=== PATIENT | male | born 1955 | race Caucasian/White ===

== ENCOUNTER 2018-08-16 13:13 | Day surgery (SDC) | payer OTHER ==
[~2018-08-16] VITALS: Ht 180.3 cm; Wt 93.9 kg
[~2018-08-16 13:13] MED LIST: ALBU90OI INH; ALBU90OI6 INH; ASPI81CH PO; AZIT250 PO; BANOPHEN50 MG PO; CEPH500 PO; CODGUAEL PO; DIPH50 PO; ERGO50000 PO; ESOM20 PO; FAMO20 PO; HYDACE5 PO; HYDCHL25 PO; Inderal40 MG PO; METO50 PO; OMEP10ER PO; OMEP20ER PO; POTASSIUM GLUCONATE PO; POTASSIUM PO; PROM25 PO; ROSU10TA PO
== END 2018-08-16 15:30 | disposition home or self-care (01) ==
LOC: ORSCSDS 13:13
PROVIDERS: Student in an Organized Health Care Education/Training Program
PROC: 0DB68ZX Excision of Stomach, Via Natural or Artificial Opening Endoscopic, Diagnostic (ICD-10-PCS; principal; 2018-08-16 14:30)
PROC: 0DB58ZX Excision of Esophagus, Via Natural or Artificial Opening Endoscopic, Diagnostic (ICD-10-PCS; principal; 2018-08-16 14:30)
PROC: 0DB98ZX Excision of Duodenum, Via Natural or Artificial Opening Endoscopic, Diagnostic (ICD-10-PCS; principal; 2018-08-16 14:30)
DX: K21.9 Gastro-esophageal reflux disease without esophagitis (principal); R13.10 Dysphagia, unspecified; R11.2 Nausea with vomiting, unspecified; K31.7 Polyp of stomach and duodenum; K29.80 Duodenitis without bleeding; K29.70 Gastritis, unspecified, without bleeding; K44.9 Diaphragmatic hernia without obstruction or gangrene; Z79.899 Other long term (current) drug therapy
CPT/HCPCS: 88305; 88342; J2250; J2704; J7120

== ENCOUNTER 2019-06-20 08:51 | Day surgery (SDC) | payer OTHER ==
[~2019-06-20] VITALS: Ht 177.8 cm; Wt 95.3 kg
--- NOTE | 2019-06-20 09:27 | NUR ---
[facility] ADMISSION TO UNIT STARTED.
--- NOTE | 2019-06-20 10:10 | NUR ---
06/20/19 1010 Marlin Millan PATIENT DETERMINED TO BE ASA APPROPRIATE FOR PROPOFOL SEDATION PRIOR TO START OF PROCEDURE BY DR. BONILLA. 3-LEAD EKG REVIEWED WITH PHYSICIAN PRIOR TO START OF PROCEDURE. PATIENT CONFIRMS NPO STATUS AND AGREES WITH SCHEDULED PROCEDURE. History, Chart, Medications and Allergies reviewed before start of procedure. MONITOR INTACT WITH CONTINUOUS PULSE OXIMETRY AND INTERMITTENT BP. O2 VIA N/C INTACT THROUGHOUT SEDATION/PROCEDURE.
--- NOTE | 2019-06-20 11:20 | NUR ---
Patient up to Ambulate independently. Gait steady. Discharge instructions reviewed with patient. Patient verbalizes understanding. Copy given to patient to take home. Patient States Post-Procedure ride home has been arranged. Discharged via wheelchair to private car for ride home. ALL BELONINGS RETURNED TO PATIENT. SPENT TIME ANSWERING QUESTIONS AND PROVIDING EMOTIONAL SUPPORT.
== END 2019-06-20 23:04 | disposition home or self-care (01) ==
LOC: ORSCMMR 08:51 → ORD 10:00 → ORSCMMR 23:04
PROVIDERS: Internal Medicine Gastroenterology
PROC: 0DBN8ZX Excision of Sigmoid Colon, Via Natural or Artificial Opening Endoscopic, Diagnostic (ICD-10-PCS; principal; 2019-06-20 10:00)
PROC: 0DBK8ZX Excision of Ascending Colon, Via Natural or Artificial Opening Endoscopic, Diagnostic (ICD-10-PCS; principal; 2019-06-20 10:00)
PROC: 0DBM8ZX Excision of Descending Colon, Via Natural or Artificial Opening Endoscopic, Diagnostic (ICD-10-PCS; principal; 2019-06-20 10:00)
DX: Z12.11 Encounter for screening for malignant neoplasm of colon (principal); Z86.010 Personal history of colon polyps; D12.2 Benign neoplasm of ascending colon; D12.4 Benign neoplasm of descending colon; D12.5 Benign neoplasm of sigmoid colon; I10 Essential (primary) hypertension; K64.4 Residual hemorrhoidal skin tags; E78.00 Pure hypercholesterolemia, unspecified; K21.9 Gastro-esophageal reflux disease without esophagitis; Z79.899 Other long term (current) drug therapy
CPT/HCPCS: 88305; J2704; J7120

== ENCOUNTER → 2022-07-10 | Outpatient (CLI) | payer OTHER ==
[2022-07-10 12:55] LABS: BASOPHILS PERCENT AUTO 1 % (0-2); EOSINOPHILS ABSOLUTE AUTO 0.17 K/mm3 (0.00-0.68); EOSINOPHILS PERCENT AUTO 2 % (0-6); Hematocrit 48.7 % (37.0-53.0); IMMATURE GRAN ABSOLUTE AUTO 0.02 K/mm3 (0.00-0.10); IMMATURE GRAN PERCENT AUTO 0 % (0-1); LYMPHOCYTES ABSOLUTE AUTO 2.41 K/mm3 (0.84-5.20); LYMPHOCYTES PERCENT AUTO 28 % (21-46); MONOCYTES ABSOLUTE AUTO 0.49 K/mm3 (0.16-1.47); MONOCYTES PERCENT AUTO 6 % (4-13); Mean Corpuscular HGB 31.7 pg (26.0-34.0); Mean Corpuscular HGB Conc 34.9 g/dL (31.5-36.5); Mean Corpuscular Volume 91 fL (80-100); Mean Platelet Volume 9.5 fL (9.1-12.4); NEUTROPHILS ABSOLUTE AUTO 5.44 K/mm3 (1.96-9.15); NEUTROPHILS PERCENT AUTO 63 % (41-73); Platelet Count 250 K/mm3 (150-400); RDW Coefficient Variation 12.2 % (11.7-14.2); RDW Standard Deviation 40.5 fL (35.1-46.3); Red Blood Cell Count 5.36 M/mm3 (4.30-5.90); White Blood Cell Count 8.63 K/mm3 (4.00-11.30)
[2022-07-10 13:05] LABS: Albumin, Blood 4.1 g/dL (3.4-5.0); Bilirubin, Total 0.5 mg/dL (0.1-1.0); Bun/Creatinine Ratio 15.4 (12.0-20.0); Calcium, Blood 9.5 mg/dL (8.5-10.1); Creatinine, Blood 1.17 mg/dL (0.60-1.20); Globulin, Blood 4.2 g/dL (2.2-4.0); Total Protein, Blood 8.3 g/dL (6.4-8.2)
== END | disposition home or self-care (01) ==
LOC: LAB SHORT 12:51 → LAB 12:51
PROVIDERS: Physician Assistant Medical
DX: K92.1 Melena (principal)
CPT/HCPCS: 80053; 85025

== ENCOUNTER → 2022-08-07 | Outpatient (CLI) | payer OTHER ==
[2022-08-07 14:36] LABS: BASOPHILS ABSOLUTE AUTO 0.07 K/mm3 (0.00-0.23); BASOPHILS PERCENT AUTO 1 % (0-2); EOSINOPHILS ABSOLUTE AUTO 0.21 K/mm3 (0.00-0.68); EOSINOPHILS PERCENT AUTO 3 % (0-6); Hematocrit 45.4 % (37.0-53.0); Hemoglobin 15.5 g/dL (13.5-17.5); IMMATURE GRAN ABSOLUTE AUTO 0.02 K/mm3 (0.00-0.10); IMMATURE GRAN PERCENT AUTO 0 % (0-1); LYMPHOCYTES ABSOLUTE AUTO 2.06 K/mm3 (0.84-5.20); LYMPHOCYTES PERCENT AUTO 29 % (21-46); MONOCYTES ABSOLUTE AUTO 0.52 K/mm3 (0.16-1.47); MONOCYTES PERCENT AUTO 7 % (4-13); Mean Corpuscular HGB 31.4 pg (26.0-34.0); Mean Corpuscular HGB Conc 34.1 g/dL (31.5-36.5); Mean Corpuscular Volume 92 fL (80-100); Mean Platelet Volume 9.8 fL (9.1-12.4); NEUTROPHILS PERCENT AUTO 60 % (41-73); Platelet Count 265 K/mm3 (150-400); RDW Coefficient Variation 12.3 % (11.7-14.2); RDW Standard Deviation 41.5 fL (35.1-46.3); Red Blood Cell Count 4.93 M/mm3 (4.30-5.90); White Blood Cell Count 7.18 K/mm3 (4.00-11.30)
== END | disposition home or self-care (01) ==
LOC: LAB SHORT 14:29 → LAB 14:29
PROVIDERS: Family Medicine
DX: K92.1 Melena (principal)
CPT/HCPCS: 85025

== ENCOUNTER 2022-09-14 09:03 | Day surgery (SDC) | payer OTHER ==
[2022-09-14] VITALS (19 sets, daily range): BP systolic 107–161; BP diastolic 79–99
[~2022-09-14] VITALS: Ht 180.3 cm; Wt 95.8 kg
--- NOTE | 2022-09-14 09:34 | NUR ---
Ambulatory in Day Surgery History, Chart, Medications and Allergies reviewed before start of procedure. Lungs clear T/O to Auscultation. Patient confirms NPO status and agrees with scheduled surgery. Pre-Op teaching done. Pt verbalizes understanding. Patient States Post-Procedure ride home has been arranged.
--- NOTE | 2022-09-14 10:12 | NUR ---
09/14/22 1012 Yuan Rao HISTORY, CHART, MEDICATIONS AND ALLERGIES REVIEWED BEFORE START OF PROCEDURE. PATIENT CONFIRMS NPO STATUS AND AGREES WITH SCHEDULED PROCEDURE. 3-LEAD EKG REVIEWED WITH PHYSICIAN PRIOR TO START OF PROCEDURE. MONITOR INTACT WITH CONTINUOUS PULSE OXIMETRY,CAPNOGRAPHY, 3-LEAD EKG, INTERMITTENT BP. SUPPLEMENTAL O2 TO BE TITRATED THROUGHOUT PROCEDURE TO MAINTAIN O2 SATURATION ABOVE 90%. PATIENT DETERMINED TO BE ASA APPROPRIATE FOR PROPOFOL SEDATION PRIOR TO START OF PROCEDURE BY
--- NOTE | 2022-09-14 11:12 | NUR ---
Patient up to Ambulate independently. Gait steady. Discharge instructions reviewed with patient. Patient verbalizes understanding. Copy given to patient to take home. Patient States Post-Procedure ride home has been arranged. Discharged via wheelchair to private car for ride home.
== END 2022-09-14 11:12 | disposition home or self-care (01) ==
LOC: ORSCMMR 09:03 → ORD 10:00 → ORSCMMR 11:12
PROVIDERS: Internal Medicine Gastroenterology
PROC: 0DBM8ZX Excision of Descending Colon, Via Natural or Artificial Opening Endoscopic, Diagnostic (ICD-10-PCS; principal; 2022-09-14 10:00)
PROC: 0DBL8ZX Excision of Transverse Colon, Via Natural or Artificial Opening Endoscopic, Diagnostic (ICD-10-PCS; principal; 2022-09-14 10:00)
DX: K62.5 Hemorrhage of anus and rectum (principal); C18.6 Malignant neoplasm of descending colon; D12.3 Benign neoplasm of transverse colon; R93.3 Abnormal findings on diagnostic imaging of other parts of digestive tract; Z86.010 Personal history of colon polyps; K21.9 Gastro-esophageal reflux disease without esophagitis; I10 Essential (primary) hypertension; Z79.899 Other long term (current) drug therapy
CPT/HCPCS: 88305; J2704; J7120

== ENCOUNTER 2022-10-17 09:17 | Inpatient (IN) | payer OTHER ==
[2022-10-17] VITALS (20 sets, daily range): BP systolic 117–156; BP diastolic 78–93
[~2022-10-17] VITALS: Ht 177.8 cm; Wt 95.5 kg
[~2022-10-17 09:17] MED LIST changes: +PROBIOTIC1 EA14 PO
--- NOTE | 2022-10-17 18:30 | NUR ---
ARRIVAL PATIENT TO ROOM 209 VIA BED. X5 LAP SITES AND MIDLINE INCIOSN BELOW UMBELICUS, MODERATE DISTENTION NOTED,PATEINT REPORTS MILD PAIN/DISCOMFORT TO ABDOMEN. VSS, ON 3L 02 TO MAINTAIN SATS >92%. A&O X4. ORIENTED TO ROOM & CALL LIGHT, IN REACH. WILL REPORT TO ONCOMING RN AT 1900.
[2022-10-18 02:12] VITALS: BP 110/76
[2022-10-18 04:52] LABS: BASOPHILS ABSOLUTE AUTO 0.02 K/mm3 (0.00-0.23); BASOPHILS PERCENT AUTO 0 % (0-2); EOSINOPHILS ABSOLUTE AUTO 0.01 K/mm3 (0.00-0.68); EOSINOPHILS PERCENT AUTO 0 % (0-6); Hematocrit 36.8 % (37.0-53.0); Hemoglobin 11.9 g/dL (13.5-17.5); IMMATURE GRAN ABSOLUTE AUTO 0.07 K/mm3 (0.00-0.10); IMMATURE GRAN PERCENT AUTO 1 % (0-1); LYMPHOCYTES ABSOLUTE AUTO 1.14 K/mm3 (0.84-5.20); LYMPHOCYTES PERCENT AUTO 7 % (21-46); MONOCYTES ABSOLUTE AUTO 1.23 K/mm3 (0.16-1.47); MONOCYTES PERCENT AUTO 8 % (4-13); Mean Corpuscular HGB 29.7 pg (26.0-34.0); Mean Corpuscular HGB Conc 32.3 g/dL (31.5-36.5); Mean Corpuscular Volume 92 fL (80-100); Mean Platelet Volume 10.1 fL (9.1-12.4); NEUTROPHILS ABSOLUTE AUTO 13.03 K/mm3 (1.96-9.15); NEUTROPHILS PERCENT AUTO 84 % (41-73); Platelet Count 272 K/mm3 (150-400); RDW Coefficient Variation 12.7 % (11.7-14.2); RDW Standard Deviation 42.4 fL (35.1-46.3); Red Blood Cell Count 4.01 M/mm3 (4.30-5.90)
--- NOTE | 2022-10-18 04:59 | NUR ---
SHIFT SUMMARY POD1 HEMICOLECTOMY, R/T CA. 5 LAP SITES AND 1 MIDLINE PUBIC INCISION, C/D W/ NO REDNESS OR DRAINAGE. VSS, O2 TITRATED OFF, MAINTAINING SATS AT 95% AND ABOVE. MEDICATED X2 W/ DILAUDID 0.5MG DOSE THIS SHIFT, TOLERATED WELL W/ RELIEF OF 3/10. SKY IN PLACE DRAINING RUBY URINE, PASSING GAS, DENIES N/V. TOLERATING CL SIPS AND ICE CHIPS. LR FLUIDS INFUSING @75/HR. PT REPORTS N/T TO BLLE R/T NEUROPATHY AND RAYNAUDS. PEDAL PULSES PALPITABLE ALTHOUGH FEET COLD TO TOUCH. PT UP X1 THIS SHIFT AND TOLERATED WELL. PT HAD MINIMAL SLEEP WITH NO ACUTE CHANGES THIS SHIFT.
[2022-10-18 05:12] LABS: Bun/Creatinine Ratio 17.6 (12.0-20.0); Calcium, Blood 8.1 mg/dL (8.5-10.1); Creatinine, Blood 1.02 mg/dL (0.60-1.20); Potassium, Blood 4.2 mmol/L (3.5-5.5)
[2022-10-18 07:34] VITALS: BP 119/70
[2022-10-18 14:03] VITALS: BP 122/73
--- NOTE | 2022-10-18 16:55 | NUR ---
SHIFT SUMMARY POD 1 MISBAH COLECTOMY. ALL SITES TO ABDOMEN APPEAR WNL. ABDOMINAL PAIN MANAGED PER EMAR. PATIENT TOLERATING FULL LIQUID DIET, ALTHOUGH MINIMAL INTAKE. IVF RUNNING PER EMAR. SKY REMOVED THIS AM AND PATIENT VOIDING W/O DIFFICULTY. AMBULATED WITHIN ROOM A COUPLE TIMES THIS SHIFT, WNCOURAGING MORE MOBILITY AND MOVEMENT. REPORTS FLATUS. CALLS APPROPRIATELY, IN REACH. WILL REPORT TO ONCOMING RN AT 1900.
[2022-10-18 19:54] VITALS: BP 143/81
[2022-10-19 00:12] VITALS: BP 131/74
[2022-10-19 02:59] VITALS: BP 153/82
--- NOTE | 2022-10-19 04:55 | NUR ---
SHIFT SUMMARY POD2 HEMICOLECTOMY, 6 LAP SITES TO ABD C/D, NO REDNESS OR SWELLING. MORE PAINFUL THIS NIGHT. TOLERATING ORAL MEDS W/ BREAKTHROUGH IV MEDS X2. VSS, MINIMAL PO INTAKE, ENCOURAGED ENSURE. IV FLUIDS CONTINUED THIS SHIFT. VOIDING WNL. PASSING GAS/ BURPING. PT STOOD AT BEDSIDE FOR 5 MINUTES. TOLERATED WELL. WILL REPORT OFF TO DAYSHIFT STAFF.
[2022-10-19 07:16] VITALS: BP 122/76
[2022-10-19 14:23] VITALS: BP 139/77
--- NOTE | 2022-10-19 16:20 | NUR ---
SHIFT SUMMARY: POD 2 LAP MISBAH COLECTOMY PATIENT IS A&OX4. VS ARE WNL AND IS ON RA. PAIN IS MANAGED WITH PO OXY AT THIS TIME. HE IS TOLERATING SMALL AMOUNTS OF HIS FULL LIQUID DIET. ABD IS SOFT TO TOUCH AND IS PASSING GAS/BURPING. DENIES NAUSEA OR VOMITING THROUGHOUT SHIFT. PATIENT HAS BEEN AMBULATING AT LEAST 3 TIMES IN THE HALLWAYS WITH HIS IF NOT MORE AND TOLERATED IT WELL. HE IS VOIDING AND IS INDEP. IN THE ROOM. PATIENT CALLS APPROPRIATELY. HE IS SITTING AT THE EDGE OF BED TALKING WITH HIS . CALL LIGHT WITHIN REACH.
[2022-10-19 19:07] VITALS: BP 144/80
[2022-10-20 03:48] VITALS: BP 159/89
[2022-10-20 05:20] LABS: BASOPHILS ABSOLUTE AUTO 0.04 K/mm3 (0.00-0.23); BASOPHILS PERCENT AUTO 0 % (0-2); EOSINOPHILS ABSOLUTE AUTO 0.21 K/mm3 (0.00-0.68); EOSINOPHILS PERCENT AUTO 2 % (0-6); Hematocrit 38.4 % (37.0-53.0); Hemoglobin 12.5 g/dL (13.5-17.5); IMMATURE GRAN ABSOLUTE AUTO 0.02 K/mm3 (0.00-0.10); IMMATURE GRAN PERCENT AUTO 0 % (0-1); LYMPHOCYTES ABSOLUTE AUTO 1.88 K/mm3 (0.84-5.20); LYMPHOCYTES PERCENT AUTO 20 % (21-46); MONOCYTES ABSOLUTE AUTO 0.61 K/mm3 (0.16-1.47); MONOCYTES PERCENT AUTO 7 % (4-13); Mean Corpuscular HGB 29.8 pg (26.0-34.0); Mean Corpuscular HGB Conc 32.6 g/dL (31.5-36.5); Mean Corpuscular Volume 92 fL (80-100); Mean Platelet Volume 9.9 fL (9.1-12.4); NEUTROPHILS ABSOLUTE AUTO 6.66 K/mm3 (1.96-9.15); NEUTROPHILS PERCENT AUTO 71 % (41-73); Platelet Count 255 K/mm3 (150-400); RDW Coefficient Variation 12.7 % (11.7-14.2); RDW Standard Deviation 42.3 fL (35.1-46.3); Red Blood Cell Count 4.19 M/mm3 (4.30-5.90); White Blood Cell Count 9.42 K/mm3 (4.00-11.30)
[2022-10-20 05:36] LABS: Creatinine, Blood 0.92 mg/dL (0.60-1.20); Potassium, Blood 3.8 mmol/L (3.5-5.5)
--- NOTE | 2022-10-20 06:30 | NUR ---
SUMMARY PT REPORTS PASSING SOME FLATUS.DENIES NAUSEA.
[2022-10-20 07:43] VITALS: BP 143/83
--- NOTE | 2022-10-20 07:43 | NUR ---
PT UP IN HALLS THIS AM AND REPORTED JUST HAD BM, PT HAD SMALL BROWN BM NOTED.
--- NOTE | 2022-10-20 08:23 | NUR ---
DR FARRIS IN TO SEE PT.
[2022-10-20 11:21] VITALS: BP 143/78
--- NOTE | 2022-10-20 11:30 | NUR ---
DISCHARGED IVS DC'D, CATHETER INTACT. REVIEWED DC INSTRUCTIONS W/PT; VERBALIZED UNDERSTANDING. PT DECLINING WC, LEAVING BY AMBULATION, ACCOMPANIED BY RIDE W/POSSESSIONS AND DC PAPERWORK IN HAND.
== END 2022-10-20 11:32 | disposition home or self-care (01) | DRG 330 ==
LOC: SURS 09:17 → PRE IP 10:45 → SURS 17:30
PROVIDERS: ADMIT Surgery
PROC: 8E0W4CZ Robotic Assisted Procedure of Trunk Region, Percutaneous Endoscopic Approach (ICD-10-PCS; 2022-10-17)
PROC: 0DBU4ZX Excision of Omentum, Percutaneous Endoscopic Approach, Diagnostic (ICD-10-PCS; 2022-10-17)
PROC: 0DBV4ZX Excision of Mesentery, Percutaneous Endoscopic Approach, Diagnostic (ICD-10-PCS; 2022-10-17)
PROC: 0DTG4ZZ Resection of Left Large Intestine, Percutaneous Endoscopic Approach (ICD-10-PCS; principal; 2022-10-17 10:45)
DX: C18.6 Malignant neoplasm of descending colon (principal); K42.0 Umbilical hernia with obstruction, without gangrene; K92.1 Melena; I10 Essential (primary) hypertension; K21.9 Gastro-esophageal reflux disease without esophagitis; K58.9 Irritable bowel syndrome, unspecified; K76.0 Fatty (change of) liver, not elsewhere classified; G47.33 Obstructive sleep apnea (adult) (pediatric); M19.90 Unspecified osteoarthritis, unspecified site; G25.81 Restless legs syndrome; G60.0 Hereditary motor and sensory neuropathy; I73.00 Raynaud's syndrome without gangrene; Z98.52 Vasectomy status; Z88.0 Allergy status to penicillin; Z88.1 Allergy status to other antibiotic agents; Z88.8 Allergy status to other drugs, medicaments and biological substances; Z79.899 Other long term (current) drug therapy
CPT/HCPCS: 36415; 80048; 85025; 86850; 86900; 86901; 88304; 88305; 88309; 88331; A9270; J1100; J1170; J2185; J2250; J2405; J2704; J2765; J2795; J3010; J7120

== ENCOUNTER → 2023-08-20 | Outpatient (CLI) | payer OTHER ==
[~2023-08-20] MED LIST changes: +ALPRAZOLAM0.5 M1 PO; +ASPIRIN REGIMEN81 MG PO; +ATOR40TA PO; +CLOP75 PO; +IRBESARTAN300 M3 PO; +LISI5 PO; +LOSA50 PO; +METO25 PO; +METOPROLOL TART25 MG PO; +NITR.4SL SL; +TRAM50 PO
[2023-08-20 11:45] LABS: BASOPHILS ABSOLUTE AUTO 0.09 K/mm3 (0.00-0.23); BASOPHILS PERCENT AUTO 1 % (0-2); EOSINOPHILS ABSOLUTE AUTO 0.39 K/mm3 (0.00-0.68); EOSINOPHILS PERCENT AUTO 3 % (0-6); Hematocrit 48.2 % (37.0-53.0); Hemoglobin 16.5 g/dL (13.5-17.5); IMMATURE GRAN ABSOLUTE AUTO 0.03 K/mm3 (0.00-0.10); IMMATURE GRAN PERCENT AUTO 0 % (0-1); LYMPHOCYTES ABSOLUTE AUTO 2.36 K/mm3 (0.84-5.20); LYMPHOCYTES PERCENT AUTO 20 % (21-46); MONOCYTES ABSOLUTE AUTO 0.65 K/mm3 (0.16-1.47); MONOCYTES PERCENT AUTO 6 % (4-13); Mean Corpuscular HGB 31.5 pg (26.0-34.0); Mean Corpuscular HGB Conc 34.2 g/dL (31.5-36.5); Mean Corpuscular Volume 92 fL (80-100); Mean Platelet Volume 10.1 fL (9.1-12.4); NEUTROPHILS ABSOLUTE AUTO 8.21 K/mm3 (1.96-9.15); NEUTROPHILS PERCENT AUTO 70 % (41-73); Platelet Count 260 K/mm3 (150-400); RDW Standard Deviation 43.7 fL (35.1-46.3); Red Blood Cell Count 5.23 M/mm3 (4.30-5.90); White Blood Cell Count 11.73 K/mm3 (4.00-11.30)
[2023-08-20 12:12] LABS: Albumin, Blood 4.1 g/dL (3.4-5.0); Albumin/Globulin Ratio 0.9 (0.8-1.8); Bilirubin, Total 0.7 mg/dL (0.1-1.0); Bun/Creatinine Ratio 21.2 (12.0-20.0); Calcium, Blood 9.7 mg/dL (8.5-10.1); Creatinine, Blood 1.18 mg/dL (0.60-1.20); Globulin, Blood 4.6 g/dL (2.2-4.0); Potassium, Blood 4.7 mmol/L (3.5-5.5); Total Protein, Blood 8.7 g/dL (6.4-8.2)
== END | disposition home or self-care (01) ==
LOC: LAB 11:41 → LAB SHORT 11:41
PROVIDERS: Physician Assistant Medical
DX: M62.81 Muscle weakness (generalized) (principal); Z95.5 Presence of coronary angioplasty implant and graft
CPT/HCPCS: 80053; 84484; 85025

== ENCOUNTER 2024-04-24 05:41 | Day surgery (SDC) | payer OTHER ==
[~2024-04-24] VITALS: Ht 180.3 cm; Wt 100.8 kg
[~2024-04-24 05:41] MED LIST changes: +AMLO5 PO; +LEVE500 PO
[2024-04-24] MEDS ORDERED: Lactated Ringer's 1,000 ML IV SCH (06:20)
[2024-04-24] MEDS ORDERED: propofoL 40 ML IV ONE (06:51)
--- NOTE | 2024-04-24 07:20 | NUR ---
INTO [facility] AMBULATORY. PT REPORTS A MILD HEADACHE THIS AM. HISTORY AND ALLERGIES CONFIRMED. LUNGS CLEAR-NO SOB OR CP REPORTED. NPO STATUS CONFIRMED. BOWEL PREP COMPLETE AND STOOL IS CLEAR WITHOUT SEDIMENT.RIDE HOME CONFIRMED.
[2024-04-24 07:21] VITALS: BP 150/96
--- NOTE | 2024-04-24 08:23 | NUR ---
04/24/24 0823 Yuan Rao MONITOR INTACT WITH CONTINUOUS PULSE OXIMETRY, CONTINUOUS END TITAL CO2, AND INTERMITTENT BLOOD PRESSURE.AND EKG ANESTHESIA PER [employer]ER
[2024-04-24 08:46] VITALS: BP 129/85
--- NOTE | 2024-04-24 09:05 | NUR ---
Discharge instructions reviewed with patient. Patient verbalizes understanding. Copy given to patient to take home. Patient States Post-Procedure ride home has been arranged. Discharged via wheelchair to private car for ride home.
== END 2024-04-24 09:05 | disposition home or self-care (01) ==
LOC: ORSCMMR 05:41 → ORD 08:00 → ORSCMMR 08:00
PROVIDERS: Internal Medicine Gastroenterology
PROC: 0DJD8ZZ Inspection of Lower Intestinal Tract, Via Natural or Artificial Opening Endoscopic (ICD-10-PCS; principal; 2024-04-24 08:00)
DX: Z12.11 Encounter for screening for malignant neoplasm of colon (principal); Z85.038 Personal history of other malignant neoplasm of large intestine; I25.10 Atherosclerotic heart disease of native coronary artery without angina pectoris; G47.33 Obstructive sleep apnea (adult) (pediatric); E11.9 Type 2 diabetes mellitus without complications; K21.9 Gastro-esophageal reflux disease without esophagitis; I10 Essential (primary) hypertension; E78.00 Pure hypercholesterolemia, unspecified; Z79.02 Long term (current) use of antithrombotics/antiplatelets; Z79.82 Long term (current) use of aspirin; Z79.899 Other long term (current) drug therapy
CPT/HCPCS: 82947; J2704; J7120